=== PATIENT | male | born 1975 | race Two or more races ===

== ENCOUNTER 2019-11-11 18:19 | Emergency (ER) | payer SELFPAY | END 2019-11-11 19:15 | disposition left against medical advice (07) | LOC: JD.ED 18:19 | DX: Z53.21 Procedure and treatment not carried out due to patient leaving prior to being seen by health care provider (principal) ==

== ENCOUNTER 2021-09-12 16:48 | Emergency (ER) | payer SELFPAY ==
--- NOTE | 2021-09-12 17:57 | EDM.PDOC ---
ED HPI GENERAL MEDICAL PROBLEM - General Chief Complaint: Neck Problem Stated Complaint: NECK PAIN Time Seen by Provider: 09/12/21 17:50 - History of Present Illness INITIAL COMMENTS - FREE TEXT/NARRATIVE: 46-year-old male presents the emergency room with neck pain. 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 He developed some intermittent tingling into his arm this now comes and goes. Patient had a similar episode 13 or 14 years ago and this seemed to get better with chiropractic manipulation. Left Neck Pain Score (Numeric/FACES): 5 - Related Data Allergies Allergy/AdvReac Type Severity Reaction Status Date / Time No Known Allergies Allergy Verified 09/12/21 17:38 Home Meds: Home Meds Orphenadrine [Norflex] 100 mg PO ASDIRECTED #8 tab 09/12/21 [Rx] Past Medical History - Past Health History Medical/Surgical History: Denies Medical/Surgical History Social & Family History - Tobacco Use Tobacco Use Status *Q: Never Tobacco User Second Hand Smoke Exposure: No - Caffeine Use Caffeine Use: Reports: Coffee - Recreational Drug Use Recreational Drug Use: No ED ROS GENERAL - Review of Systems Review Of Systems: See Below Constitutional: Reports: No Symptoms HEENT: Reports: No Symptoms Respiratory: Reports: No Symptoms Cardiovascular: Reports: No Symptoms GI/Abdominal: Reports: No Symptoms ED EXAM, GENERAL - Physical Exam Exam: See Below Exam Limited By: No Limitations General Appearance: Alert, No Apparent Distress Head: Atraumatic, Normocephalic Neck: Normal Inspection, Supple, Non-Tender, Other (Near the base of the neck and the muscles just off the paraspinous muscles he has some tenderness. He has some intermittent numbness that seems to be in the axilla and down the inner upper arm this does not go below the elbow). No: Tender Midline Respiratory/Chest: No Respiratory Distress, Lungs Clear, Normal Breath Sounds Cardiovascular: Regular Rate, Rhythm, No Edema, No Murmur Extremities: Normal Inspection, Other (Tinel's sign is negative at the left wrist Phalen's and reverse Phalen's is negative) Course - Vital Signs Last Recorded V/S: Last Vital Signs Temp 36.7 C 09/12/21 17:37 Pulse 73 09/12/21 17:37 Resp 15 09/12/21 17:37 BP 146/91 H 09/12/21 17:37 Pulse Ox 100 09/12/21 17:37 - Orders/Labs/Meds Orders: Active Orders 24 hr Category Date Time Status Cervical Spine 2V or 3V [CR] Stat Exams 09/12/21 17:57 Taken - Re-Assessments/Exams Free Text/Narrative Re-Assessment/Exam: 09/12/21 18:41 Went ahead and ordered a cervical spine 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 I'm not seeing any acute changes noted he has some degenerative changes developing in the lower cervical region. They did have to do a swimmer's view to complete the exam. We'll start Norflex mostly at night twice daily tomorrow and then after tomorrow one nightly Departure - Departure Time of Disposition: 18:49 Disposition: Home, Self-Care 01 Clinical Impression: Cervical muscle strain - Discharge Information Prescriptions: Orphenadrine [Norflex] 100 mg PO ASDIRECTED #8 tab Instructions: Muscle Strain, [id number] Referrals: PCP,None [Primary Care Provider] - Forms: ED Department Discharge Additional Instructions: Return to the emergency room with any questions problems or worsening symptoms. You've been started on Norflex, this is a muscle relaxant start this evening taking one nightly tomorrow you take one twice daily and then Tuesday resume one nightly. You may return to work on a regular schedule with this dosing regimen. However, try and allow 12 hours after taking the medication before driving or returning to work. Prescription was sent electronically to the [place] [facility] in the [employer] store. On Tuesday follow-up with your regular healthcare provider, if you do not have one you can follow-up with the hospital clinic. [phone]. You may also follow-up with your chiropractor. You can take ibuprofen or Aleve in addition to the muscle relaxant Sepsis Event Note (ED) - Focused Exam Vital Signs: Vital Signs Temp Pulse Resp BP Pulse Ox 09/12/21 17:37 36.7 C 73 15 146/91 H 100 - My Orders Last 24 Hours: My Active Orders 09/12/21 17:57 Cervical Spine 2V or 3V [CR] Stat - Assessment/Plan Last 24 Hours: My Active Orders 09/12/21 17:57 Cervical Spine 2V or 3V [CR] Stat
--- NOTE | 2021-09-12 19:20 | CR ---
Cervical spine: AP, lateral, odontoid and swimmer's views of the cervical spine were obtained. Moderate to severe disc space narrowing is noted at C5-6 with anterior osteophytes and mild posterior osteophytes. Moderate disc space narrowing is noted at C6-7 with mild anterior osteophytes. Other disc spaces are maintained. Prevertebral soft tissues are normal. No subluxation or fracture is seen. Impression: 1. Degenerative changes at C5-6 and C6-7 as noted above. 2. Cervical spine study is otherwise unremarkable. Diagnostic code #2
== END 2021-09-12 19:17 | disposition home or self-care (01) ==
LOC: JD.ED 16:48
DX: S16.1XXA Strain of muscle, fascia and tendon at neck level, initial encounter (principal); X50.0XXA Overexertion from strenuous movement or load, initial encounter
CPT/HCPCS: 72040; 72040-26; 99283-25

== ENCOUNTER 2021-09-25 23:51 | Inpatient (IN) | payer OTHER ==
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
[2021-09-26] MEDS ORDERED: fentaNYL 100 MCG/2 ML SDV IVPUSH ONE ×3 (00:10→02:50)
[2021-09-26] MEDS ORDERED: Ondansetron 4 MG/2 ML SDV IVPUSH ONE ×2 (00:10→02:49)
[2021-09-26] MEDS: Lactated Ringers 1,000 ML IV SCH ×2 (00:15→07:48)
[2021-09-26] MEDS ORDERED: Sodium Chloride 0.9% 10 ML SDV FLUSH ONE (00:19)
[2021-09-26] MEDS ORDERED: Iopamidol 612 MG/ML 50 ML SDV IVPUSH ONE (00:19)
[2021-09-26] MEDS ORDERED: Iopamidol 612 MG/ML 100 ML Bottle IVPUSH ONE (00:19)
[2021-09-26] MEDS ORDERED: Sodium Chloride 0.9% 100 ML IV SCH (00:30)
[2021-09-26] MEDS: Diphtheria,Pertussis(Acell),Tetanus Vaccine 0.5 ML Syringe IM ONE ×2 (01:07→05:01)
[2021-09-26] MEDS ORDERED: Potassium Chloride 20 MEQ Tab.ER PO ONE (03:04)
[2021-09-26] MEDS ORDERED: Acetaminophen/HYDROcodone 325-5 MG Tab PO ONE (03:04)
--- NOTE | 2021-09-26 07:25 | CT ---
CT cervical spine Technique: Multiple axial sections were obtained from above C1 inferiorly to the top of T2. Reconstructed coronal and sagittal images were obtained. Limitations: Motion artifact is present. Comparison: Prior cervical spine plain film study of 09/12/21. Findings: Disc space narrowing is noted at C5-6 and C6-7 with anterior osteophytes. Posterior osteophytes are seen which are most prominent at C5-6. Mild scattered degenerative change is seen within the apophyseal joints. Mild to moderate left-sided neural foraminal stenosis is noted at C6-7. Mild left-sided neural foraminal stenosis is also noted at C5-6. Other neural foramina are patent. No central canal stenosis is seen. No discrete fracture is seen. No acute subluxation is seen. Slight scoliosis is noted. Impression: 1. Motion artifact. Within this limitation, degenerative changes are noted. Minimal scoliosis is seen. 2. No acute fracture or abnormal subluxation is seen. Diagnostic code #2 I agree with preliminary report from [facility], finalized on 09/26/21, 2:17 AM BESSEMER REGULATOR, code 1
--- NOTE | 2021-09-26 07:30 | CT ---
CT chest Technique: Multiple axial sections were obtained through the chest. Intravenous contrast was utilized. Reconstructed coronal and sagittal images were obtained. Comparison: No prior chest imaging is available. Findings: Thoracic aorta shows no aneurysm. Mediastinum shows no hematoma or adenopathy. No pericardial thickening is seen. No axillary adenopathy is appreciated. Lungs are clear with no acute parenchymal change. Bone window settings were reviewed which show no definite acute osseous abnormality. Impression: 1. Nothing acute is appreciated on CT study of the chest. Diagnostic code #1 I agree with preliminary report from [facility], finalized on 09/26/21, 2:08 AM LITIGATION COORDINATOR, code 1 CT abdomen and pelvis Technique: Multiple axial sections were obtained from above the dome of the diaphragm inferiorly through the pubic symphysis. Intravenous contrast was utilized. No oral contrast has been given. Delayed images were also obtained through the abdomen and pelvis. Reconstructed coronal and sagittal images were obtained. Comparison: No prior abdominal imaging is available. Findings: Thickening of the left gluteal muscle is seen. Surrounding increased density is noted around the gluteal muscle within the posterolateral soft tissues fat. There is evidence of increased density being seen within the adjacent fat as well as within the thickened gluteal muscle compatible with acute hemorrhage. This area of injury measures roughly 11.3 cm x 15.8 cm. Small hiatal hernia is noted. Liver shows no focal abnormality. Spleen size is normal. Adrenal glands showed no nodule. Pancreas is within normal limits. Surgical clips are seen from prior cholecystectomy. Left kidney is smaller than the right. Left kidney has a length of 7.9 cm with right kidney having a length of 12.3 cm. Cyst is noted within the upper right kidney measuring 3.9 cm. Delayed images show contrast excretion from both kidneys into the ureters and into the bladder. Abdominal aorta shows no aneurysm. No retroperitoneal adenopathy is seen. No mesenteric abnormalities are seen. No pelvic mass or adenopathy is noted. No free fluid or inflammatory change is seen within the abdomen or pelvis. Bone window settings were reviewed which show disc space narrowing at T12-L1 and mild disc space narrowing at L2-3. Degenerative change is also noted within both apophyseal joints. No acute osseous finding is seen. Impression: 1. Findings compatible with hematoma within the left gluteal muscle and adjacent posterolateral fat. There is evidence of acute hemorrhage being seen within the muscle and fat. Measurements are roughly 11.3 x 15.8 cm. 2. No acute abnormality is seen within the abdomen or pelvis. 3. Degenerative change within the spine with no acute osseous abnormality being seen. Diagnostic code #3 I agree with preliminary report from [facility], finalized on 09/26/21 02:08 AM LITIGATION COORDINATOR, code 1
--- NOTE | 2021-09-26 07:30 | CT ---
Head CT Technique: Multiple axial sections through the brain were obtained. Intravenous contrast was not utilized. Reconstructed coronal and sagittal images were obtained. Comparison: No prior intracranial imaging is available. Findings: Ventricles along with basal cisterns and sulci over the convexities are within normal limits for the patient's age. No abnormal parenchymal densities are seen. No evidence of intracranial hemorrhage is seen. No midline shift or mass-effect is seen. Bone window settings were reviewed. No acute calvarial abnormality is seen. Visualized mastoid sinuses and paranasal sinuses show nothing acute. Impression: 1. Nothing acute is seen on noncontrast head CT study. Diagnostic code #1 I agree with preliminary report from [facility], finalized on 09/26/21, 02:11 AM CARDIOVASCULAR PHYSICIAN ASSISTANT, code 1
--- NOTE | 2021-09-26 07:31 | CR ---
Right femur: AP and lateral views of the right femur were obtained. Comparison: No prior right femur study is available. No discrete fracture or other bony abnormality is seen. Impression: 1. No acute bony abnormality is seen on the right femur study. Diagnostic code #1
--- NOTE | 2021-09-26 07:31 | CR ---
Left femur: AP and lateral views of the left femur were obtained. Comparison: No prior femur study is available. No fracture or other bony abnormality is appreciated. Impression: 1. Nothing acute is seen and 2-view left femur study. Diagnostic code #1
[2021-09-26] MEDS: Acetaminophen/HYDROcodone 325-5 MG Tab PO PRN ×2 (07:48→13:19)
[2021-09-26] MEDS ORDERED: Ondansetron 4 MG Tab.DIS PO PRN (09:36)
[2021-09-26] MEDS ORDERED: Lactated Ringers 1,000 ML IV SCH (09:45)
[2021-09-26] MEDS ORDERED: Lactated Ringers 1,000 ML IV ONE ×2 (09:48→17:15)
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
[2021-09-26] MEDS ORDERED: HYDROmorphone 0.5 MG/0.5 ML Syringe IVPUSH PRN (10:03)
[2021-09-26] MEDS: Ketorolac 30 MG/ML SDV IVPUSH SCH ×3 (11:10→23:10)
[2021-09-26] MEDS: Nicotine 7 MG/24 Hr Patch TRDERM SCH (17:37)
[2021-09-27] MEDS: Ketorolac 30 MG/ML SDV IVPUSH SCH ×3 (04:32→11:35)
[2021-09-27] MEDS: Nicotine 7 MG/24 Hr Patch TRDERM SCH (08:53)
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
[2021-09-27] MEDS: Acetaminophen/HYDROcodone 325-5 MG Tab PO PRN (12:27)
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
== END 2021-09-27 15:50 | disposition home or self-care (01) | DRG 605 ==
LOC: JD.ED 23:51 → JD.MS 09-26 06:46 → OBSVTOIN 09-26 09:24
PROVIDERS: ADMIT Surgery; ATTEND Surgery
DX: S30.1XXA Contusion of abdominal wall, initial encounter (principal); F17.210 Nicotine dependence, cigarettes, uncomplicated; Z20.822 Contact with and (suspected) exposure to COVID-19; V89.2XXA Person injured in unspecified motor-vehicle accident, traffic, initial encounter; Z90.49 Acquired absence of other specified parts of digestive tract; Y92.89 Other specified places as the place of occurrence of the external cause
CPT/HCPCS: 36415; 51798; 70450; 70450-26; 71260; 71260-26; 72125; 72125-26; 73552-26-LT; 73552-26-RT; 73552-LT; 73552-RT; 74177; 74177-26; 80053; 80307; 81001; 85014; 85018; 85025; 85610; 86850; 86900; 86901; 90715; 93005; 94760; 94761; A9270-GY; J1885; J2405; J3010; J7120; Q9967; U0002

== ENCOUNTER 2021-09-28 22:47 | Emergency (ER) | payer OTHER ==
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
[2021-09-29] MEDS ORDERED: Sodium Chloride 0.9% 1,000 ML IV SCH (00:45)
--- NOTE | 2021-09-29 07:09 | CT ---
CT abdomen and pelvis Technique: Multiple axial sections were obtained from above the dome of the diaphragm inferiorly through the pubic symphysis. Intravenous contrast was utilized. Reconstructed coronal and sagittal images were obtained. Comparison: Prior CT abdomen and pelvis study of 09/26/21. Findings: Well-defined hematoma is seen within the left buttock region. This appears to involve less of the gluteal muscle and more of the adjacent fat plane. This has measurements of 14.5 cm in oblique transverse measurement, 5.0 cm in AP measurement with craniocaudal measurement being 13.0 cm. Some measurements of this finding have slightly increased with other measurements being stable. There is more definition of this finding. No acute hemorrhage is seen. Slight increased density is noted more anteriorly within the anterolateral left abdomen compatible with additional subcutaneous hematoma. Visualized lung bases show nothing acute. Liver shows no focal parenchymal abnormality. Spleen size is normal. Adrenal glands show no nodule. Surgical clips are seen from prior cholecystectomy. Kidneys show symmetric contrast enhancement. Cyst is noted within the right kidney measuring 3.8 cm. Left kidney is smaller than the right kidney which is stable. Abdominal aorta shows no aneurysm. Small hiatal hernia is noted. No retroperitoneal adenopathy is seen. No mesenteric abnormalities are seen. Appendix is not visualized. No pelvic mass or adenopathy is seen. Bone window settings were reviewed which show mild degenerative change within the spine as previously described. Nothing acute is identified. Impression: 1. Hematoma within the posterolateral left pelvis which is better defined currently than on prior study compatible with early resolution. Slight changing in measurements are noted which are believed to be incidental. 2. Mild increased hemorrhage is seen within the anterolateral left lower abdomen which is most likely representing resolving injury. 3. Small hiatal hernia as well as prior cholecystectomy. 4. No acute intra-abdominal abnormality is seen. Diagnostic code #3 I agree with preliminary report from [facility], finalized on 09/29/21, 4:13 AM [employer], code 1
== END 2021-09-29 04:25 | disposition home or self-care (01) ==
LOC: JD.ED 22:47
DX: S30.0XXA Contusion of lower back and pelvis, initial encounter (principal); V89.2XXA Person injured in unspecified motor-vehicle accident, traffic, initial encounter; Y92.410 Unspecified street and highway as the place of occurrence of the external cause
CPT/HCPCS: 36415; 74177; 85014; 85018; 99284; J7030

== ENCOUNTER 2022-05-13 17:08 | Emergency (ER) | payer SELFPAY ==
[2022-05-13] MEDS ORDERED: HYDROmorphone 1 MG/ML Syringe IM ONE (17:27)
[2022-05-13] MEDS ORDERED: Cyclobenzaprine 10 MG Tab PO ONE (17:28)
== END 2022-05-14 00:07 | disposition home or self-care (01) ==
LOC: JD.ED 17:08
DX: M54.42 Lumbago with sciatica, left side (principal); Z79.899 Other long term (current) drug therapy; Z90.49 Acquired absence of other specified parts of digestive tract
CPT/HCPCS: 36415; 80053; 85025; 96372; 99283; A9270; J1170